=== PATIENT | male | born 1990 | race Caucasian/White ===

== ENCOUNTER → 2018-05-30 | Outpatient (CLI) | payer SELFPAY ==
--- NOTE | 2018-05-30 09:16 | US ---
EXAMINATION TYPE: US prostate transrectal DATE OF EXAM: 05/30/2018 COMPARISON: NONE CLINICAL HISTORY: NOCTURIA, CHRONIC PELVIC PAIN. 27 year old states urinary frequency and urgency x 2 years, LLQ/Flank pain, pt also states prostate felt enlarged on Dr's digital examination This examination was performed using the transrectal probe. EXAM MEASUREMENTS: Gland Size: 3.9 x 1.8 x 4.3 cm Volume: 15.9 ml Predicted PSA: 1.91 Actual PSA (if available):Not available at time of exam No abnormality visualized within prostate/ Prostate measurements wnl IMPRESSION: No distinct abnormality appreciated at this time. Please correlate with actual PSA. Predicted PSA = volume x 0.12 ng/ml Calculated Volume = 0.5236 x L x W x H
== END | disposition home or self-care (01) ==
LOC: RADUSMAIN 07:25
DX: G89.29 Other chronic pain (principal); R10.2 Pelvic and perineal pain; R35.0 Frequency of micturition; R39.15 Urgency of urination; R35.1 Nocturia
CPT/HCPCS: 76872